=== PATIENT | female | born 1960 | race Asian ===

== ENCOUNTER → 2024-11-19 | Outpatient (CLI) | payer MEDICAID, SELFPAY ==
--- NOTE | 2024-11-19 | XR_ITS ---
MRI shoulder, right, without contrast. Date and time: November 19, 2024 0725 hours Right shoulder pain beginning 5 years ago, decreased range of motion 50% abduction shoulder clicking Technique: Multiple axial, sagittal and coronal sections of the shoulder have been obtained. Siemens high-resolution 1.5 Suzy MRI scanner is utilized. Axial fat-suppressed sections, TR 2350, TE 18 T2-weighted coronal fat-saturated images, TR 3500, TE 7100 T1-weighted coronal images, TR 500, TE 15 T2-weighted sagittal fat-saturated images, TR 3500, TE 57 T1-weighted sagittal sections, TR 504, TE 13. Findings: Large 3 cm full-thickness rotator cuff tear Subscapularis insertion is intact. Subscapularis bursa is minimal. Long head of the biceps is in the bicipital groove. No definite tear of the biceps superior labral anchor is seen. Retraction of the musculotendinous junction of the rotator cuff is prominent. Tendinosis pattern is moderate. Distance between the acromium and humeral head is 5 mm Atrophy of the supraspinatus muscle is severe. Atrophy of the infraspinatus muscle is severe. Sagittal sections demonstrate a horizontal acromion. Acromioclavicular joint demonstrates mild osteoarthritis . Osacromiale is not identified. Labral margins appear intact. Bony glenoid fossa on the sagittal sections does not demonstrate osseous defect. Occult fracture or area of avascular necrosis is not seen. Acromioclavicular joint separation is not visible. Defect in the posterolateral margin of the humeral head is not seen Impression: Large full-thickness rotator cuff tear
== END | disposition home or self-care (01) ==
PROVIDERS: PCP Physician Assistant; Referring Provider Orthopaedic Surgery; Visit Provider Orthopaedic Surgery
DX: M75.101 Unspecified rotator cuff tear or rupture of right shoulder, not specified as traumatic (principal)
CPT/HCPCS: 73221

== ENCOUNTER 2024-12-06 12:20 | Day surgery (SDC) | payer MEDICAID, SELFPAY ==
--- NOTE | 2024-12-03 20:42 | ESHP_ITS ---
RE: IDANIA ALVARENGA : 1960 DATE OF ADMISSION: 12/06/2024 HISTORY OF PRESENT ILLNESS: This patient is a 64-year-old [place] female, who speaks good [place]. She was referred by in [facility] for a colonoscopy. The patient denies any history of rectal bleeding or other symptoms pertaining to the colon. The patient also denies history of colon cancer in the family. PAST MEDICAL HISTORY: Essentially unremarkable other than hypertension and maybe slightly elevated blood sugar. She also has pain over the right shoulder, for which she is being evaluated by an orthopedic surgeon, who has not seen her yet. PHYSICAL EXAMINATION: Reveals a pleasant, healthy [place] female, who appeared to be near stated age. She is 5 feet 2 inches tall and weighing 140 pounds with BMI of 25.6. Her vital signs revealed a temperature of 98.3, pulse 92, respirations 20, and BP 120/74. Examination of head was normal. Eyes, ears, nose, and throat were normal. Neck was normal. Lungs have good breath sounds on both sides. Heart had sinus rhythm. Abdomen showed that the patient had a surgical scar from removal of the kidney many years ago laparoscopically. IMPRESSION: 1. Screening colonoscopy. 2. Essential hypertension. 3. Hyperlipidemia. COURSE OF ACTION: I advised the patient to undergo colonoscopy because of her age. She is agreeable and wants to have this done. Procedure was explained to her in detail and she is willing. DT: 19:09:49 TT: 20:26:00 Ref: [id number] - TID: [id number]
[2024-12-05 14:39] VITALS: BMI 24.5
[2024-12-06] VITALS (12 sets, daily range): BP systolic 102–135; BP diastolic 58–87; PULSE 68–99; RESP 13–21; TEMP 36.4–36.5; O2SAT 92–100; BMI 23.8
[2024-12-06] MEDS: RINGERS LACTATED 1000 ML 1,000 ML 100 ML IV (14:35)
[2024-12-06] MEDS: fentaNYL CIT INJ 50 mCg/ML AMP 2ML (ASD USE ONLY) IVP (14:43)
[2024-12-06] MEDS: MIDAZOLAM INJ 1 MG/ML VIAL 2 ML (ASD USE ONLY) 2 MG IVP (14:43)
--- NOTE | 2024-12-06 15:31 | SUR.PHASEII ---
1530 Pt more awake and alert. Denies pain or N/V. Abd soft. Nona PO fluids.
--- NOTE | 2024-12-06 15:49 | SUR.PHASEII ---
1545 Pt assessment unchanged. No complaints. Pt amb with steady gait. Able to dress self. Pt and given dc instructions. Both state understanding. Pt meets dc criteria-to home.
== END 2024-12-06 15:45 | disposition home or self-care (01) ==
PROVIDERS: PCP Physician Assistant; Referring Provider Surgery; Visit Provider Surgery
PROC: 0DBE8ZX Excision of Large Intestine, Via Natural or Artificial Opening Endoscopic, Diagnostic (ICD-10-PCS; CPT 45380; principal; 2024-12-06 14:30)
DX: Z12.11 Encounter for screening for malignant neoplasm of colon (principal); I10 Essential (primary) hypertension; E78.5 Hyperlipidemia, unspecified
CPT/HCPCS: 45378; A4649; J2250; J3010; J7120